=== PATIENT | male | born 1965 | race Caucasian/White ===

== ENCOUNTER 2016-12-05 13:00 | Inpatient (IN) ==
[2016-12-05] MEDS ORDERED: IOPAMIDOL 100 ML BOTTLE IJ ONE (13:01)
--- NOTE | 2016-12-05 13:29 | Emergency Department Note ---
General Adult HPI - General Chief complaint: Shortness of Breath/Dyspnea Stated complaint: SOB, chronic bronchitis, Leg swelling, swollen abd Time Seen by Provider: 12/05/16 13:24 Source: patient Mode of arrival: ambulatory Limitations: no limitations - History of Present Illness HPI Narrative: This patient comes in because of edema for a week. He's noted both legs and abdomen be swollen. It is impairing his breathing and he is becoming short of breath. He does have known hepatitis C which is ever been treated. He does not know how long he's had it. Used to drink alcohol although he doesn't think it was excessive. Onset (ago): day(s) Location: abdomen, lower extremity Improves with: none - Related Data Home Medications Medication Instructions Recorded Confirmed No Known Home Meds [No Known Home 12/05/16 12/05/16 Meds] Allergies Allergy/AdvReac Type Severity Reaction Status Date / Time No Known Drug Allergies Allergy Unverified 12/05/16 13:02 Review of Systems Constitutional: Denies: fever, chills Eyes: Denies: eye pain ENT ED: Reports: throat pain. Denies: ear pain Cardiovascular: Reports: dyspnea on exertion. Denies: chest pain, palpitations Respiratory: Reports: cough Gastrointestinal: Denies: abdominal pain, nausea, vomiting Genitourinary: Denies: urgency Musculoskeletal: Denies: back pain Integumentary: Denies: rash Neurological: Denies: headache Past Medical History - Past Medical History Medical history: Reports: hypertension, migraine, other (hepatitis C) Surgical history ED: Reports: orthopedic, other Psychiatric history: Reports: anxiety Physical Exam - General Limitations: no limitations General appearance: alert, in no apparent distress - Head Head exam: atraumatic, normocephalic - Eye Eye exam: Present: normal appearance - ENT ENT exam: normal exam, normal oropharynx - Neck Neck exam: Present: normal inspection - Chest Chest inspection: Present: normal inspection - Respiratory Respiratory exam: Present: normal lung sounds bilaterally. Absent: respiratory distress, wheezes - Cardiovascular Cardiovascular exam: Present: regular rate, normal rhythm, normal heart sounds - Abdominal Exam Abdominal exam: Present: soft, distention. Absent: tenderness, guarding, rebound, rigidity - Extremities Exam Extremities exam: Present: pedal edema - Neurological Exam Neurological exam: Present: alert - Psychiatric Psychiatric exam: Present: normal affect - Skin Skin exam: Present: warm, dry Course Vital Signs Temperature 97.6 F 12/05/16 13:02 Pulse Rate 118 H 12/05/16 13:02 Respiratory Rate 28 H 12/05/16 13:02 Blood Pressure 182/125 12/05/16 13:02 Temperature 97.6 F 12/05/16 13:02 Pulse Rate 108 H 12/05/16 17:30 Respiratory Rate 18 12/05/16 16:55 Blood Pressure 185/120 12/05/16 17:30 Pulse Oximetry (%) 94 12/05/16 17:30 Medical Decision Making - MDM Narrative Medical decision making narrative: This patient appears to be in congestive heart failure probably due to hypertensive urgency and untreated hypertension. He has been given IV Vasotec and his blood pressure has started to come down some. He was given 40 mg of Lasix IV and had a 1500 cc diuresis. I discussed the case with Dr. Garcia and the patient will be admitted telemetry for congestive heart failure. - Lab Data Lab results reviewed: Yes I reviewed the patient's lab results. Result diagrams: 12/05/16 13:36 12/05/16 13:36 Lab Results 12/05/16 12/05/16 12/05/16 Range/Units 13:36 13:36 13:36 WBC 10.5 (4.5-11.0) K/mcL RBC 4.96 (4.50-5.90) M/mcL Hgb 12.6 L (13.5-16.5) g/dL Hct 39.9 L (41.0-55.0) % MCV 80.4 (80.0-100.0) fL MCH 25.3 L (26.0-34.0) pg MCHC 31.5 (31.0-36.0) g/dL RDW 15.3 H (11.5-14.5) % Plt Count 327 (140-440) K/mcL MPV 7.3 L (7.4-10.4) fL Gran % 74.2 (38.0-78.0) % Lymph % (Auto) 18.4 (15.5-49.0) % Carroll % (Auto) 5.1 (1.0-9.0) % Eos % (Auto) 1.8 (0.0-7.0) % Baso % (Auto) 0.5 (0.0-2.0) % Gran # 7.8 (1.8-8.0) K/mcL Lymph # 1.9 (1.5-4.8) K/mcL Carroll # 0.5 (0.1-0.9) K/mcL Eos # 0.2 (0.0-0.7) K/mcL Baso # 0 (0.0-0.3) K/mcL PT 15.2 H (11.9-14.5) sec INR 1.2 H (0.9-1.1) D-Dimer 1.85 H (0.00-0.40) ug/ml Sodium 138 (133-145) mmol/L Potassium 4.3 (3.3-5.1) mmol/L Chloride 101 (96-108) mmol/L Carbon Dioxide 26 (22-30) mmol/L Anion Gap 11.0 (8-16) BUN 18 (6-20) mg/dl Creatinine 0.8 (0.7-1.2) mg/dl GFR Calculation 102 Glucose 128 H (70-105) mg/dL Calcium 8.2 L (8.6-10.4) mg/dl Total Bilirubin 0.4 (0.0-1.0) mg/dL AST 33 (0-37) U/l ALT 42 H (0-40) U/l Alkaline Phosphatase 74 (39-117) U/L Troponin T (0-0.03) ng/ml NT-Pro-B Natriuret Pep (0-125) pg/ml Total Protein 6.9 (5.9-8.4) gm/dL Albumin 3.6 (3.2-5.2) gm/dL Globulin 3.3 (2.2-3.7) gm/dL Albumin/Globulin Ratio 1.1 (1.0-2.3) 12/05/16 12/05/16 Range/Units 13:36 13:36 WBC (4.5-11.0) K/mcL RBC (4.50-5.90) M/mcL Hgb (13.5-16.5) g/dL Hct (41.0-55.0) % MCV (80.0-100.0) fL MCH (26.0-34.0) pg MCHC (31.0-36.0) g/dL RDW (11.5-14.5) % Plt Count (140-440) K/mcL MPV (7.4-10.4) fL Gran % (38.0-78.0) % Lymph % (Auto) (15.5-49.0) % Carroll % (Auto) (1.0-9.0) % Eos % (Auto) (0.0-7.0) % Baso % (Auto) (0.0-2.0) % Gran # (1.8-8.0) K/mcL Lymph # (1.5-4.8) K/mcL Carroll # (0.1-0.9) K/mcL Eos # (0.0-0.7) K/mcL Baso # (0.0-0.3) K/mcL PT (11.9-14.5) sec INR (0.9-1.1) D-Dimer (0.00-0.40) ug/ml Sodium (133-145) mmol/L Potassium (3.3-5.1) mmol/L Chloride (96-108) mmol/L Carbon Dioxide (22-30) mmol/L Anion Gap (8-16) BUN (6-20) mg/dl Creatinine (0.7-1.2) mg/dl GFR Calculation Glucose (70-105) mg/dL Calcium (8.6-10.4) mg/dl Total Bilirubin (0.0-1.0) mg/dL AST (0-37) U/l ALT (0-40) U/l Alkaline Phosphatase (39-117) U/L Troponin T 0.01 (0-0.03) ng/ml NT-Pro-B Natriuret Pep 2998.0 H (0-125) pg/ml Total Protein (5.9-8.4) gm/dL Albumin (3.2-5.2) gm/dL Globulin (2.2-3.7) gm/dL Albumin/Globulin Ratio (1.0-2.3) - Radiology Data Radiology results reviewed: Yes I reviewed the patient's radiology results. ( duplex of the legs was negative for DVT. Chest x-ray shows interstitial edema. CTA of chest is negative for PE.) Disposition Clinical Impression: Congestive heart failure Disposition: Xfer As Inpt ([facility]) Condition: Good Time of Disposition: 18:38
[2016-12-05] MEDS ORDERED: ENALAPRILAT 1.25 MG/ML VIAL IV ONE (13:56)
--- NOTE | 2016-12-05 13:58 | XRay Report ---
CLINICAL INFORMATION: Dyspnea TECHNIQUE: Upright PA and lateral chest x-ray COMPARISON: 07/23/2009 FINDINGS: Mild cardiomegaly. No pulmonary edema. Interstitial markings are prominent and there is mild peribronchial thickening. This may be related to interstitial edema or bronchitis. No focal pulmonary parenchymal consolidation. No pleural fluid. IMPRESSION: 1. Mild cardiomegaly. 2. Prominent interstitial markings as above. 3. No focal consolidation Interpreted and Authenticated by: Donta Roth 12/05/16
[2016-12-05 14:10] LABS: Basophils # (Auto) 0 K/mcL (0.0-0.3); Basophils % (Auto) 0.5 % (0.0-2.0); Eosinophils # (Auto) 0.2 K/mcL (0.0-0.7); Eosinophils % (Auto) 1.8 % (0.0-7.0); Granulocytes % (Auto) 74.2 % (38.0-78.0); Lymphocytes # (Auto) 1.9 K/mcL (1.5-4.8); Lymphocytes % (Auto) 18.4 % (15.5-49.0); Mean Cell Volume 80.4 fL (80.0-100.0); Mean Corpuscular HGB Conc 31.5 g/dL (31.0-36.0); Mean Corpuscular Hemoglobin 25.3 pg (26.0-34.0); Monocytes # (Auto) 0.5 K/mcL (0.1-0.9); Monocytes % (Auto) 5.1 % (1.0-9.0); Platelet Count 327 K/mcL (140-440); RBC 4.96 M/mcL (4.50-5.90); Red Cell Distribution Width 15.3 % (11.5-14.5)
[2016-12-05 14:30] LABS: ALT/SGPT 42 U/l (0-40); Albumin 3.6 gm/dL (3.2-5.2); Albumin/Globulin Ratio 1.1 (1.0-2.3); Alkaline Phosphatase 74 U/L (39-117); Blood Urea Nitrogen 18 mg/dl (6-20)
--- NOTE | 2016-12-05 14:32 | Ultrasound Report ---
CLINICAL INFORMATION: Leg pain and swelling TECHNIQUE: Grayscale and color flow spectral imaging COMPARISON: None. FINDINGS: Negative examination for deep venous thrombosis. Common femoral veins, superficial femoral veins, popliteal veins are negative bilaterally. Greater and lesser saphenous veins and calf veins are negative. IMPRESSION: Negative examination for deep venous thrombosis Interpreted and Authenticated by: Donta Roth 12/05/16
[2016-12-05 14:39] LABS: D-Dimer 1.85 ug/ml (0.00-0.40)
[2016-12-05] MEDS ORDERED: IPRATROPIUM/ALBUTEROL 3 ML AMPUL.NEB NEB ONE (14:50)
--- NOTE | 2016-12-05 15:11 | Ultrasound Report ---
CLINICAL INFORMATION: Hepatitis. Probable ascites. TECHNIQUE: Limited abdominal ultrasound to evaluate for ascites COMPARISON: None. FINDINGS: There is minimal perihepatic comparison.. There is no detectable ascitic fluid in the pelvis. Patient is not a candidate for percutaneous paracentesis. IMPRESSION: 1. Minimal ascitic fluid in the perihepatic and perisplenic space 2. No ascitic fluid amenable to percutaneous drainage. Interpreted and Authenticated by: Donta Roth 12/05/16
--- NOTE | 2016-12-05 16:54 | Cat Scan Report ---
CLINICAL INFORMATION: Dyspnea. Chronic bronchitis. Leg swelling. Distended abdomen. COMPARISON: Chest x-ray dated 12/05/2016 TECHNIQUE: Axial images obtained through the chest. 80 mL intravenous contrast administration was administered, and scanning was performed during pulmonary arterial phase. Sagittally and coronally reformatted images were obtained. MIP reformatted images. FINDINGS: Main pulmonary artery, right pulmonary, left pulmonary artery are normal. No intraluminal filling defects. No lobar, segmental, or subsegmental abnormalities. Negative examination for pulmonary embolism. No focal pulmonary parenchymal infiltrate or mass. No bronchiectasis. No significant emphysema. There is mild diffuse pulmonary parenchymal density but no focal consolidation. Appearance may be related to relative hypoexpansion in this large patient. No hilar or mediastinal adenopathy. There is mild cardiomegaly. No pericardial fluid. Minimal right pleural fluid. There is a small amount of intraperitoneal fluid. Splenic and perihepatic spaces. Liver contour is smooth. No evidence for cirrhosis. Spleen is not significantly enlarged. Thoracic spine is negative. No rib or sternal lesions. IMPRESSION: 1. Negative pulmonary CTA. No pulmonary pulmonary embolism 2. Small amount of intraperitoneal fluid in the perihepatic and perisplenic spaces 3. No focal pulmonary parenchymal consolidation. No parenchymal mass Interpreted and Authenticated by: Donta Roth 12/05/16
[2016-12-05] MEDS ORDERED: FUROSEMIDE 40 MG/4 ML VIAL IV ONE (17:45)
[2016-12-05] MEDS ORDERED: ONDANSETRON 4 MG/2 ML VIAL IV PRN (18:36)
[2016-12-05] MEDS ORDERED: guaiFENesin/CODEINE 10 ML UDC PO PRN (18:36)
[2016-12-05] MEDS ORDERED: MAGNESIUM SULFATE 2 GM/50 ML BAG IV PRN (18:36)
[2016-12-05] MEDS ORDERED: POTASSIUM CHLORIDE 40 MEQ in DEXTROSE 5% IN WATER 500 ML IV PRN (18:36)
[2016-12-05] MEDS ORDERED: ACETAMINOPHEN 1,000 MG/100 ML BOTTLE IV PRN (18:36)
[2016-12-05] MEDS ORDERED: traZODone HCL 50 MG TABLET PO PRN (21:00)
[2016-12-05] MEDS: LISINOPRIL 10 MG TABLET PO SCH (21:29)
[2016-12-05] MEDS: DOCUSATE SODIUM 100 MG CAPSULE PO SCH (21:29)
[2016-12-05] MEDS: HEPARIN 5,000 UNIT/ML VIAL SQ SCH (21:29)
[2016-12-05] MEDS: SENNOSIDES/DOCUSATE SODIUM 1 TAB TABLET PO SCH (21:29)
[2016-12-05] MEDS: FUROSEMIDE 40 MG/4 ML VIAL IV SCH (21:29)
[2016-12-05] MEDS: 0.9 % SODIUM CHLORIDE 10 ML SYRINGE IV SCH (21:31)
--- NOTE | 2016-12-05 22:31 | History and Physical Report ---
DATE OF ADMISSION: 12/05/2016 DATE OF ADMISSION: 12/05/2016 REASON FOR ADMISSION: Worsening shortness of breath, progressive dyspnea, generalized swelling along with orthopnea. HISTORY OF CHIEF COMPLAINTS: The patient is a 51-year-old who comes to [facility] Emergency Room with above symptoms that have progressed over the last 4 weeks. Patient has gained over 20 pounds in the last 4 weeks. He endorses taking Motrin for his toothache, 400 to 600 mg a day. He, however, denies any other changes in habits, including excessive salt diet. He has been diagnosed with hypertension at [facility] but has not followed up with primary care physician. In the past, he used to take lisinopril/metoprolol but has not taken in over a year. He does remember his blood pressures being around 200 a year ago and has since remained unchecked. Other than that, patient denies chest pain, lightheadedness, dizziness, diaphoresis, but he does endorse to increasing orthopnea and difficulty lying flat at night. He is unable to sleep. He has increasing frequency. He denies diarrhea. He denies rash, joint swelling, glandular swelling, abdominal pain, diarrhea, or bloody stool. Initial workup in the ER was significant for acute decompensated heart failure/hypertensive urgency with blood pressures over 220. Hospitalist Service was consulted for admission and evaluation. At the time of examination, the patient is alert and oriented. He is significantly labored, unable to talk in full sentences. He is accompanied with his daughter. He was able to provide a detailed history as above. REVIEW OF SYSTEMS: Ten-point review of system was performed and negative except the ones discussed above. PAST MEDICAL HISTORY: 1. History of hypertension, untreated, and patient stopped following up at [facility] physician. 2. Obesity. 3. Tobacco dependence. CURRENT MEDICATIONS: None. In the past, patient has been on metoprolol/lisinopril. FAMILY HISTORY: Significant for mother with coronary artery disease/CHF/COPD. Father with coronary artery disease, [place]. SOCIAL HISTORY: The patient lives in [place]. 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 Smokes a pack a day and carries over 24-roak-lpddu of smoking. No history of alcoholism. No primary care physician at this time. ALLERGIES: None. PHYSICAL EXAMINATION: GENERAL: The patient is fairly distressed, short of breath, unable to talk in full sentences. BMI 36.6. Height 5 feet 5 inches. VITAL SIGNS: Blood pressure 180 to 125, down from 220 systolic, 180 to 125 down from 200, heart rate 118, temperature 97.6, respiratory rate 28, saturations 95% on room air. HEENT: Pupils symmetric. Oral cavity is dry. No ear or nose discharge. Head is normocephalic and atraumatic. NECK: No lymphadenopathy. CHEST: S1, S2, tachycardia. ESM grade 1. Diminished breath sounds at bases, expiratory rhonchi. ABDOMEN: Significantly distended, tense along with hepatomegaly, no fluid noted. LOWER EXTREMITIES: Significant for pitting edema 1+ from mid thigh to the ankle bilaterally with stasis changes. SKIN: Otherwise, no suspicious lesions. PSYCHIATRIC: Very anxious, distressed, short of breath, but cooperative. No agitation. NEURO: Nonfocal. LABS AND IMAGING: White count 10.5, hemoglobin 12.6, platelets 227. INR 1.2. D-dimer 1.85, sodium 130, potassium 4.3, creatinine 0.8, BUN 18. LFTs unremarkable. Troponin negative. BNP 3000. CT angiogram chest unremarkable. No apparent process. Venous extremity duplex negative for DVT. Abdominal ultrasound, mild ascites. X-ray chest: Mild cardiomegaly. No consolidation. EKG: Sinus tachycardia, LVH by voltage. ASSESSMENT AND PLAN: A 51-year-old admitted with acute decompensated heart failure secondary to hypertensive urgency. 1. Acute decompensated heart failure. Start patient on diuretics. The patient has over 30 pounds of weight gain in the last month and a half. It is likely precipitated from uncontrolled systemic hypertension with diastolic heart failure. Our goal will be to initiate patient on antihypertensive with low dose metoprolol/jazlyn inhibitor and target systolics around 150s to 160s and subsequent dose titration by primary care physician as an outpatient. At this time, we will evaluate with echocardiogram to assess left ventricular function. Will admit the patient in telemetry. Continue diuresis. 2. Hypertensive urgency. Continue as needed hydralazine if systolics over 200. Will initiate beta edward and JAZLYN inhibitor at this time at a low dose. 3. History of tobacco dependence. Continue nicotine patch. 4. History of anxiety disorder. Continue as needed Ativan. PLAN FOR TODAY: 1. Admit as inpatient. 2. Tele-monitoring. 3. Aggressive diuresis. 4. JAZLYN inhibitor. 5. Echocardiogram. AA:evelina Job ID: [id number] Doc ID: [id number] Micky Jeter MD [facility]
[2016-12-05 23:56] LABS: Magnesium 2.1 mg/dL (1.6-2.5)
[2016-12-06] MEDS: hydrALAZINE 20 MG/ML VIAL IV PRN (00:41)
[2016-12-06] MEDS: 0.9 % SODIUM CHLORIDE 10 ML SYRINGE IV SCH ×3 (05:53→21:01)
[2016-12-06 06:06] LABS: Mean Cell Volume 80.1 fL (80.0-100.0); Mean Corpuscular HGB Conc 31.5 g/dL (31.0-36.0); Mean Corpuscular Hemoglobin 25.2 pg (26.0-34.0); Platelet Count 330 K/mcL (140-440); RBC 5.24 M/mcL (4.50-5.90); Red Cell Distribution Width 15.1 % (11.5-14.5)
[2016-12-06 06:36] LABS: ALT/SGPT 40 U/l (0-40); Albumin 3.6 gm/dL (3.2-5.2); Alkaline Phosphatase 77 U/L (39-117); Bilirubin,Direct < 0.2 mg/dL (0.0-0.3); Blood Urea Nitrogen 17 mg/dl (6-20); Gamma Glutamyl Transpeptidase 121 U/L (8-61); Magnesium 2.1 mg/dL (1.6-2.5); Phosphorous 3.9 mg/dL (2.7-4.5); Uric Acid 8.7 mg/dL (2.5-8.0)
[2016-12-06 06:50] LABS: Anisocytosis 1+ (NONE SEEN); Eosinophils % (Manual) 1 % (0-7); Hypochromasia 1+ (NONE SEEN); Lymphocytes % 20 % (15-49); Monocytes % (Manual) 6 % (1-9); Platelet Estimate NORMAL (NORMAL); RBC Morphology ABNORM (NORMAL); Segmented Neutrophils % 72 % (38-78)
--- NOTE | 2016-12-06 09:59 | Internal Med Progress Note ---
Medical - PN: Subj Patient information: Note initiated : 12/06/16 at 9:57 am Service Date, if different from initiated Date: [] Patient: Shawn Bazan 51 y/o M admitted on 12/05/16 for SOB, chronic bronchitis, Leg swelling, swollen abd. Chief Complaint: [] Interval history: 12/05- patient admitted with hypertensive urgency with systolic around 200 along with acute decompensated heart failure. History of poorly controlled hypertension with systolics around 200 since a year and progressive dyspnea on exertion along with progressive weight gain on presentation. await echo. Initiated aggressive diuresis. Started on low-dose JAZLYN inhibitor/beta edward. Aggressive counseling for outpatient follow-up with primary care physician as patient has not followed up for over a year 12/06-systolics improved to 160s at goal. Diuresed over 4000 cc. Continue aggressive diuresis target additional 6000 cc negative. Improved exertional dyspnea and work of breathing. Improving orthopnea. Await echocardiogram. No overnight telemetry events. Electrolytes stable. Tolerating beta edward/JAZLYN inhibitor. - Constitutional Vitals: Vital Signs Temp Pulse Resp BP Pulse Ox 98.3 F 110 H 24 165/98 96 12/06/16 07:16 12/06/16 08:17 12/06/16 07:16 12/06/16 07:16 12/06/16 08:17 Period Temp Pulse Resp BP Sys/Thao Pulse Ox Last 24 Hr 97.9 F-98.6 F 105-111 24-26 159-183/98-122 92-96 Intake and Output 12/05/16 12/06/16 12/06/16 21:59 05:59 13:59 Intake Total 660 / 660 420 / 420 Output Total 1250 / 1700 2200 / 2200 450 / 450 Balance -590 / -1040 -2200 / -2200 -30 / -30 Weight 241 lb 8 oz Intake & Output: Intake & Output 12/05/16 12/06/16 12/06/16 21:59 05:59 13:59 Intake Total 660 / 660 420 / 420 Output Total 1250 / 1700 2200 / 2200 450 / 450 Balance -590 / -1040 -2200 / -2200 -30 / -30 Weight 241 lb 8 oz Intake: Oral 660 / 660 420 / 420 Output: Void Amount 1250 / 1700 2200 / 2200 450 / 450 Other: Meal Dinner Breakfast Percent of Meal Consumed 100% 100% Feeding Ability Assist with Tray Set Up # Voids 1 # Bowel Movements 1 General appearance: moderate distress, morbidly obese Exam: abored breathing but improved since previous day Improving lymphedema improving anxiety s1 and S2 regular diminished breath sounds at base, rhonchi positive Medical - PN: Obj Da - Labs CBC & Chem 7: 12/06/16 04:03 12/06/16 04:03 Labs: Abnormal Lab Results 12/06/16 12/06/16 04:03 04:03 WBC 12.4 H Hgb 13.2 L MCH 25.2 L RDW 15.1 H RBC Morphology Abnorm A Hypochromasia 1+ A Anisocytosis 1+ A Glucose 114 H Uric Acid 8.7 H GGT 121 H Lactate Dehydrogenase 254 H Meds: Medications Docusate Sodium (Colace) 100 mg PO BID [facility] Last Admin: 12/05/16 21:29 Dose: 100 mg Furosemide (Lasix) 40 mg IV BIDD [facility] Last Admin: 12/05/16 21:29 Dose: 40 mg Guaifenesin/Codeine Phosphate (Robitussin Ac) 10 ml PO Q4HP PRN PRN Reason: Cough Heparin Sodium (Porcine) (Heparin) 5,000 unit SQ Q12 [facility] Last Admin: 12/05/16 21:29 Dose: 5,000 unit Hydralazine HCl (Apresoline) 10 - 20 mg IV Q4-6HP PRN PRN Reason: Hypertension Last Admin: 12/06/16 00:41 Dose: 20 mg Potassium Chloride 40 meq/ (Dextrose) 520 mls @ 130 mls/hr IV UD PRN PRN Reason: K+ = or < 3.5 Magnesium Sulfate (Magnesium Sulfate) 2 gm in 50 mls @ 50 mls/hr IV UD PRN PRN Reason: MG = or < 1.7 Acetaminophen (Ofirmev) 1,000 mg in 100 mls @ 200 mls/hr IV Q6HP PRN PRN Reason: PAIN/FEVER > 101 Iron Carb/Multivit/Kirklin/Folic Acid (Multivitamin W/Minerals) 1 tab PO DAILY [facility] Lisinopril (Zestril) 10 mg PO HS [facility] Last Admin: 12/05/16 21:29 Dose: 10 mg Metoprolol Succinate (Toprol Xl) 12.5 mg PO DAILY [facility] Ondansetron HCl (Zofran) 4 mg IV Q4-6HP PRN PRN Reason: Nausea And Vomiting Senna/Docusate Sodium (Senna Plus Tablet) 1 tab PO HS [facility] Last Admin: 12/05/16 21:29 Dose: 1 tab Sodium Chloride (Saline Flush) 10 ml IV Q8 [facility] Last Admin: 12/06/16 05:53 Dose: 10 ml Trazodone HCl (Desyrel) 50 mg PO HSP PRN PRN Reason: Insomnia Medical - PN: A/P - Time Spent With Patient Total time spent is greater than 50% in coordination of care (as documented) at patient's floor/unit and/or counseling patient: Greater than 35 minutes - Narrative A/P Narrative: ASSESSMENT- 51-year-old with poorly controlled hypertension admitted with acute decompensated heart failure likely secondary to uncontrolled hypertension. * Acute decompensated heart failure-responding well to diuretics. Likely secondary to diastolic dysfunction from uncontrolled hypertension. Await echo. Start low-dose beta edward/JAZLYN inhibitor and uptitrate. * Hypertensive urgency-systolics over 200. no treatment since over a year as patient stopped following up with primary care physician and stopped taking home meds. initiated on beta edward/JAZLYN inhibitor. Await echo. Started systolic 160. With follow-up primary care phy for better optimization. * history tobacco dependence- continue bronchodilators/nicotine patch. Aggressive smoking cessation counseling * Dyspnea secondary to decompensated heart failure-Clinically improving * Prophylaxis on heparin plan * continue diuresis * beta edward and JAZLYN inhibitor * Await echo * Possible discharge in 48 hours with outpatient follow with PCP Medical - PN: Qual - VTE Deep Vein Thrombosis/Pulmonary Embolism Present on Admission: No
[2016-12-06] MEDS: DOCUSATE SODIUM 100 MG CAPSULE PO SCH ×2 (10:04→20:59)
[2016-12-06] MEDS: METOPROLOL SUCCINATE 25 MG TAB.XL.24H PO SCH (10:04)
[2016-12-06] MEDS: FUROSEMIDE 40 MG/4 ML VIAL IV SCH ×2 (10:04→15:14)
[2016-12-06] MEDS: MULTIVIT,THER IRON,CA,FA & MIN 1 TABLET PO SCH (10:04)
[2016-12-06] MEDS: HEPARIN 5,000 UNIT/ML VIAL SQ SCH ×2 (10:04→20:59)
[2016-12-06 20:17] LABS: Appearance,Urine CLEAR; Bilirubin,Urine NEG (NEG); Color,Urine COLORLESS; Glucose,Urine (UA) NEGATIVE (NEG); Leukocyte Esterase,Urine NEG /uL (NEG); Nitrate,Urine NEG (NEG); Protein,Urine NEG (NEG); Specific Gravity,Urine 1.008 (1.000-1.035); Urine Blood NEG mg/dL (<0.03); Urobilinogen,Urine NEG (NEG)
[2016-12-06] MEDS: LISINOPRIL 10 MG TABLET PO SCH (20:59)
[2016-12-06] MEDS: SENNOSIDES/DOCUSATE SODIUM 1 TAB TABLET PO SCH (20:59)
[2016-12-06] MEDS: NICOTINE 21 MG PATCH TOPICAL SCH (21:00)
[2016-12-07] MEDS: hydrALAZINE 20 MG/ML VIAL IV PRN (04:27)
[2016-12-07] MEDS: 0.9 % SODIUM CHLORIDE 10 ML SYRINGE IV SCH ×2 (04:34→07:08)
[2016-12-07 05:50] LABS: Mean Cell Volume 79.9 fL (80.0-100.0); Mean Corpuscular HGB Conc 31.2 g/dL (31.0-36.0); Platelet Count 298 K/mcL (140-440); RBC 5.26 M/mcL (4.50-5.90); Red Cell Distribution Width 15.5 % (11.5-14.5)
[2016-12-07 06:39] LABS: ALT/SGPT 36 U/l (0-40); Albumin 3.4 gm/dL (3.2-5.2); Albumin/Globulin Ratio 0.9 (1.0-2.3); Alkaline Phosphatase 77 U/L (39-117); Bilirubin,Direct < 0.2 mg/dL (0.0-0.3); Blood Urea Nitrogen 17 mg/dl (6-20); Gamma Glutamyl Transpeptidase 103 U/L (8-61); Magnesium 2.2 mg/dL (1.6-2.5); Phosphorous 3.9 mg/dL (2.7-4.5); Uric Acid 9.1 mg/dL (2.5-8.0)
[2016-12-07 07:02] LABS: Anisocytosis 1+ (NONE SEEN); Band Neutrophils % 1 % (0-10); Eosinophils % (Manual) 2 % (0-7); Hypochromasia 1+ (NONE SEEN); Lymphocytes % 10 % (15-49); Monocytes % (Manual) 5 % (1-9); Platelet Estimate NORMAL (NORMAL); RBC Morphology ABNORM (NORMAL); Segmented Neutrophils % 77 % (38-78)
[2016-12-07] MEDS: FUROSEMIDE 40 MG/4 ML VIAL IV SCH (07:07)
--- NOTE | 2016-12-07 07:44 | XRay Report ---
CLINICAL INFORMATION: Chronic bronchitis TECHNIQUE: AP portable semiupright chest x-ray COMPARISON: Previous CT scan dated 12/05/2016. Previous chest x-rays dated 12/05/2016 and 07/23/2009 FINDINGS: Lungs are negative. No parenchymal infiltrate or mass. Heart size and vascularity are within normal limits. No pulmonary edema. No acute abnormality. No significant interval change. IMPRESSION: Negative AP chest x-ray Interpreted and Authenticated by: Donta Roth 12/07/16
[2016-12-07] MEDS: DOCUSATE SODIUM 100 MG CAPSULE PO SCH (08:15)
[2016-12-07] MEDS: MULTIVIT,THER IRON,CA,FA & MIN 1 TABLET PO SCH (08:15)
[2016-12-07] MEDS: METOPROLOL SUCCINATE 25 MG TAB.XL.24H PO SCH (08:15)
[2016-12-07] MEDS: HEPARIN 5,000 UNIT/ML VIAL SQ SCH (08:17)
[2016-12-07] MEDS ORDERED: METOPROLOL SUCCINATE 25 MG TAB.XL.24H PO SCH (09:00)
--- NOTE | 2016-12-07 09:19 | Echocardiogram Report ---
ECHOCARDIOGRAM: 2-D and M-mode echocardiography with cardiac Doppler and color flow imaging were performed with a [employer] Aplio MX. Indication is congestive heart failure. All four chambers appeared mildly enlarged. LV wall thickness appeared mildly increased. Systolic performance appeared moderately to severely and globally depressed. Estimated ejection fraction is 30%. There was no evidence for mural thrombi. Aortic root diameter appeared normal. The aortic valve appeared trileaflet and normal. There was no evidence for aortic stenosis or aortic regurgitation by Doppler interrogation. Mitral and tricuspid valves appeared unremarkable. Doppler interrogation of LV inflow disclosed a so-called restrictive pattern as can be seen with heart failure. Mitral regurgitation, probably mild (1+), was demonstrated. Pulmonary venous interrogation disclosed ''d'' wave dominance indicating elevated pulmonary wedge pressure. The pulmonic valve was normal ''a'' wave amplitude. Pulmonary artery acceleration time was difficult to measure. There was no evidence for pulmonic stenosis. Pulmonic regurgitation, probably trivial, and tricuspid regurgitation, probably mild (1+), were noted. No intracardiac shunting was appreciated. There was no evidence of pericardial effusion. The IVC was dilated and did not vary with the respiratory cycle indicating raised CVP. Calculated estimate of PA systolic pressure is moderately elevated at 50-55 mmHg. Sinus tachycardia, rate 106, was present. CONCLUSION:Mild four chamber enlargement with mild concentric LVH and moderate to severe global LV systolic dysfunction. Mitral regurgitation, probably mild (1+). Elevated pulmonary wedge pressure/moderate and probably passive pulmonary hypertension/raised CVP. (See accompanying M-mode and Doppler reports for quantitation.) ECHOCARDIOGRAPHY M-MODE CALCULATIONS: HT: 65'' WT: 241 BSA: 2.14 m2 NORMALS AORTA: AORTIC ROOT 3.1 2.0-3.7 cm LEFT ATRIUM 3.9 1.9-4.0 cm MITRAL VALVE: EXCURSION 2.0 1.9-2.7 cm EPSS 1.0 <0.5 cm LT VENTRICLE: LVID (ED) 5.3 3.5-5.7 cm LVID (ES) 4.0 SEPTAL THICKNESS 1.3 0.6-1.1 cm SEPTAL EXCURSION 0.4 0.3-0.8 cm LVPW THICKNESS 1.3 0.6-1.1 cm LVPW EXCURSION 1.0 0.9-1.4 cm MINOR AXIS FS 2.5 25%-40% RT VENTRICLE: RVID (ED) 2.5 0.9-2.6 cm(up to 3cm if LLD) QUALITATIVE DOPPLER FLOW STUDIES MITRAL VALVE MR, probably mild (1+) AORTIC VALVE -- TRICUSPID VALVE TR, probably mild (1+) PULMONIC VALVE MT, probably trivial QUANTITATIVE DOPPLER FLOW STUDIES SAMPLE SITES VELOCITIES PEAK PRESSURE VALVE AREA and/or VALVE WINDOW (PEAK,M/SEC) DROP (GRADIENT) PRESSURE HALF-TIME MV (Diastole) 1.5 -- -- MV (Systole) 4.8 -- -- AO (Diastole) -- -- -- AO (Systole) 1.4 -- -- TV (Systole) 2.8 -- -- PV (Systole) 0.8 -- -- PV (Diastole) 0.8 LWG:don Job ID: [id number] Doc ID: [id number] William Gunter MD
--- NOTE | 2016-12-07 10:57 | Discharge Summary ---
Medical - DS: Prov Patient information: Note initiated : 12/07/16 at 10:49 am Service Date, if different from initiated Date: [] Patient: Shawn Bazan a 51 y/o M admitted on 12/05/16 for SOB, Chronic Bronchitis, Leg Swelling, Swollen Abd. Chief Complaint: [] Date of admission: 12/05/16 19:15 Discharge date: 12/07/16 Primary care physician: [f_Reg Prim Care Provider] Medical - DS: Meds - Discharge Medications Prescriptions: Lisinopril [Zestril] 20 mg PO HS #60 tablet Metoprolol Succinate [Toprol Xl] 25 mg PO DAILY #60 tab.xl.24h Multivit,Ther Iron,Ca,FA & Min [Multivitamin W/Minerals] 1 tab PO DAILY #60 tablet traZODone HCL [Desyrel] 50 mg PO HSP PRN #14 tablet PRN Reason: Insomnia Active and Home Medications: Home Medications Lisinopril [Zestril] 20 mg PO HS #60 tablet 12/07/16 [Rx Last Taken Unknown] Metoprolol Succinate [Toprol Xl] 25 mg PO DAILY #60 tab.xl.24h 12/07/16 [Rx Last Taken Unknown] Multivit,Ther Iron,Ca,FA & Min [Multivitamin W/Minerals] 1 tab PO DAILY #60 tablet 12/07/16 [Rx Last Taken Unknown] traZODone HCL [Desyrel] 50 mg PO HSP PRN #14 tablet 12/07/16 [Rx Last Taken Unknown] Medical - DS: Hosp Hospital course: DISCHARGE DIAGNOSIS * Acute decompensated NYHA class III systolic heart failure with EF 30%- responded well to diuretics. Continue JAZLYN inhibitor/beta edward/diuretics. Discharge with outpatient follow-up with cardiology/primary care physician. * pulmonary hypertension-rule out obstructive sleep apnea. Scheduled outpatient sleep study for CPAPevaluation * Hypertensive urgency-systolics now around 160. Increase lisinopril to 20 and long-acting metoprolol 25. * history tobacco dependence- possible early COPD-continue bronchodilators/ nicotine patch. Aggressive smoking cessation counseling * Dyspnea secondary to decompensated heart failure-clinically resolved now on room air [facility] Mr. Bazan is a 51 year old male admitted with decompensated heart failure/ anasarca 12/05- patient admitted with hypertensive urgency with systolic around 200 along with acute decompensated heart failure. History of poorly controlled hypertension with systolics around 200 since a year and progressive dyspnea on exertion along with progressive weight gain on presentation. await echo. Initiated aggressive diuresis. Started on low-dose JAZLYN inhibitor/beta edward. Aggressive counseling for outpatient follow-up with primary care physician as patient has not followed up for over a year 12/06-systolics improved to 160s at goal. Diuresed over 4000 cc. Continue aggressive diuresis target additional 6000 cc negative. Improved exertional dyspnea and work of breathing. Improving orthopnea. Await echocardiogram. No overnight telemetry events. Electrolytes stable. Tolerating beta edward/JAZLYN inhibitor. 12/07- echocardiogram EF 30% with pulmonary artery pressures 50-55. Concentric LVH. Discuss finding with patient and need for cardiology evaluation for underlying cardiomyopathy. also patient would need outpatient sleep study to rule out obstructive sleep apnea given pulmonary hypertension and recurrent apnea noticed by nursing staff while at sleep. patient will continue extended release beta edward/JAZLYN inhibitor and will need primary care physician follow up for optimization of hypertension and management of systolics heart failure. detailed discharge instructions as below. Discharge diagnosis: . - Time Spent with Patient Total time spent providing and/or coordinating discharge services: Greater than 30 minutes Medical - DS: Exam - Constitutional Vitals: Vital Signs Temp Pulse Resp BP BP BP Pulse Ox 12/07/16 07:19 98.1 F 102 H 22 152/100 94 12/07/16 04:00 98.2 F 108 H 22 170/104 95 12/07/16 00:00 97.1 F L 107 H 22 159/84 96 12/06/16 20:00 99.5 F 111 H 20 145/86 94 12/06/16 16:00 97.9 F 97 H 22 144/93 97 12/06/16 12:00 97.9 F 101 H 22 156/107 98 Intake and Output 12/06/16 12/07/16 12/07/16 21:59 05:59 13:59 Intake Total 930 / 930 240 / 240 360 / 360 Output Total 0 / 0 Balance 930 / 930 240 / 240 360 / 360 Intake: Oral 930 / 930 240 / 240 360 / 360 Output: Void Amount 0 / 0 Other: Meal Dinner Breakfast Percent of Meal Consumed 100% 100% Feeding Ability Independent # Voids 500 1 1 Weight 235 lb Medical - DS: Data Labs on day of discharge: Labs from last 24 hours 12/07/16 12/07/16 12/06/16 04:30 04:30 17:40 WBC 11.3 H RBC 5.26 Hgb 13.1 L Hct 42.1 MCV 79.9 L MCH 25.0 L MCHC 31.2 RDW 15.5 H Plt Count 298 MPV 7.4 Total Counted 100 Seg Neutrophils % 77 Band Neutrophils % 1 Lymphocytes % 10 L Monocytes % (Manual) 5 Eosinophils % (Manual) 2 Reactive Lymphocytes 5 H Platelet Estimate Normal RBC Morphology Abnorm A Polychromasia Few A Hypochromasia 1+ A Anisocytosis 1+ A Microcytosis 1+ A Sodium 140 Potassium 4.0 Chloride 97 Carbon Dioxide 30 Anion Gap 13.0 BUN 17 Creatinine 1.0 GFR Calculation 86 Glucose 127 H Uric Acid 9.1 H Calcium 8.4 L Phosphorus 3.9 Magnesium 2.2 Total Bilirubin 0.5 Direct Bilirubin < 0.2 GGT 103 H AST 31 ALT 36 Alkaline Phosphatase 77 Lactate Dehydrogenase 277 H Total Protein 7.0 Albumin 3.4 Globulin 3.6 Albumin/Globulin Ratio 0.9 L Triglycerides 92 Urine Color Colorless Urine Appearance Clear Urine pH 6.0 Ur Specific [place] 1.008 Urine Protein Neg Urine Glucose (UA) Negative Urine Ketones Neg Urine Occult Blood Neg Urine Nitrate Neg Urine Bilirubin Neg Urine Urobilinogen Neg Ur Leukocyte Esterase Neg Ur Culture Indicated? No Medical - DS: A/P - Patient/Caregiver Discharge Instructions Activity: increase activity as tolerated, resume usual activities as tolerated Diet: Low Sodium (2gm) Additional Instructions: [facility] will contact you to schedule a sleep study on Saturday. If you do not hear from them by Saturday, please contact them at Follow-up PCP s scheduled Follow-up with cardiology for evaluation ofCardiomyopathy I recommend primary care physician to check CBC BMP in 1 week. daily weights measurements and take additional 40 mg Lasix for 3 days if weight gain over 4 pounds over baseline or worsening shortness of breath and call primary care physician if inadequate response to Lasix Take potassium with Lasix only Return to ER if worsening fever chills shortness of breath, diarrhea, bleeding Review risk and side effect profile of medications including JAZLYN inhibitor/beta edward. Side effect may include mild to severe reaction including angioedema, rash, low blood pressure dizziness fall and even which can be prevented by close follow-up with PCP and monitoring for side effects Refrain from smoking and alcohol Continue low sodium diet and activity as advised Discussed importance of medication adherence Please review medication list with patient prior to discharge Please schedule follow-up with PCP/Providers prior to discharge and provide printouts Portions of this chart may have been created with [employer] voice recognition software. Occasional wrong-word or ?sound-like? substitutions may have occurred due to the inherent limitations of voice recognition software. Please read the chart carefully and recognize, using context, where the substitutions have occurred. CC- PCP Prescriptions: Lisinopril [Zestril] 20 mg PO HS #60 tablet Metoprolol Succinate [Toprol Xl] 25 mg PO DAILY #60 tab.xl.24h Multivit,Ther Iron,Ca,FA & Min [Multivitamin W/Minerals] 1 tab PO DAILY #60 tablet traZODone HCL [Desyrel] 50 mg PO HSP PRN #14 tablet PRN Reason: Insomnia - Follow up Plan Follow up with: Silvio Bojorquez ARNP [Physician] - 12/11/16 10:40 am (You are scheduled for a one time post hospital follow up appointment with Silvio Bojorquez. ) Tripp Parker [Physician] - (Dr. Parker office will contact you on Saturday for a follow appt. after reviewing your information.) Disposition: Home, Self-Care Prognosis: Good Rehab Potential: Undetermined I certify that the patient requires SNF services: No Overall status at discharge: patient is progressing back to baseline Medical - DS: Qual - VTE Deep Vein Thrombosis/Pulmonary Embolism Present on Admission: No
[2016-12-07] MEDS: NICOTINE 21 MG PATCH TOPICAL SCH (12:43)
== END 2016-12-07 13:15 | disposition home or self-care (01) | DRG 304 ==
LOC: ED 13:00 → ICU 19:15
PROVIDERS: ADMIT Internal Medicine; ATTEND Internal Medicine